=== PATIENT | female | born 1970 | race Caucasian/White ===

== ENCOUNTER → 2018-02-11 | Outpatient (CLI) | payer MEDICARE ==
[~2018-02-11] MED LIST: ARIP10TA33 PO; DULO30CA2 PO; HYDR50CA2 PO; OMEP40CA6 PO
[2018-02-11 15:35] LABS: BASOPHILS # (AUTO) 0.03 x10^3/uL (0-0.1); BASOPHILS % (AUTO) 0 % (0-1); EOSINOPHILS # (AUTO) 0.19 x10^3/uL (0-0.4); EOSINOPHILS % (AUTO) 2 % (1-7); LYMPHOCYTES # (AUTO) 2.46 x10^3/uL (1-3.4); LYMPHOCYTES % (AUTO) 31 % (22-44); MD NO; MEAN CORPUSCULAR HGB CONC 32.1 g/dL (32.4-35.8); MEAN CORPUSCULAR VOLUME 80.9 fL (80-100); MONOCYTES # (AUTO) 0.58 x10^3/uL (0.2-0.8); MONOCYTES % (AUTO) 7 % (2-9); NEUTROPHILS # (AUTO) 4.68 x10^3/uL (1.8-6.8); NEUTROPHILS % (AUTO) 59 % (42-75); PLATELET COUNT 447 x10^3/uL (130-400); RED CELL DISTRIBUTION WIDTH 15.1 % (9.6-15.2)
[2018-02-11 15:47] LABS: INTERNATIONAL NORMALIZED RATIO 0.93 (0.93-1.1); PROTHROMBIN TIME 9.6 Seconds (9.6-11.5)
[2018-02-11 15:49] LABS: ALANINE AMINOTRANSFERASE 38 U/L (12-78); ANION GAP 3 mmol/L (5-15); CALCIUM 9.3 mg/dL (8.5-10.1); CHLORIDE 106 mmol/L (98-107); CREATININE 0.88 mg/dL (0.55-1.02)
[2018-02-11 15:50] LABS: CULTURE INDICATED? NO; MICROSCOPIC NOT IND
[2018-02-11 15:51] LABS: ALKALINE PHOSPHATASE 260 U/L (45-117); BILIRUBIN,TOTAL 0.3 mg/dL (0.2-1.0); TOTAL PROTEIN 8.4 g/dL (6.4-8.2)
== END | disposition home or self-care (01) ==
LOC: STAR 14:39
PROVIDERS: ATTEND Orthopaedic Surgery Orthopaedic Surgery of the Spine
DX: Z01.818 Encounter for other preprocedural examination (principal); K44.9 Diaphragmatic hernia without obstruction or gangrene
CPT/HCPCS: 36415; 71046; 80053; 81003; 85025; 85610; 85730

== ENCOUNTER 2018-02-15 09:02 | Day surgery (SDC) | payer MEDICARE ==
[2018-02-11 15:57] VITALS: BP 156/95
[~2018-02-15] VITALS: Ht 162.6 cm; Wt 87.2 kg
[2018-02-15] MEDS ORDERED: LACTATED RINGERS 1,000 ML IV SCH (09:24)
[2018-02-15] MEDS ORDERED: ONDANSETRON ODT 8 MG PO ONE (09:30)
[2018-02-15] MEDS ORDERED: ACETAMINOPHEN 500 MG TABLET PO ONE (09:30)
[2018-02-15] MEDS ORDERED: GABAPENTIN 300 MG CAPSULE PO ONE (09:30)
[2018-02-15] MEDS ORDERED: SCOPOLAMINE PATCH, 1.5MG PATCH.TD72 TD ONE (09:30)
[2018-02-15 10:00] LABS: AMPHETAMINE SCREEN, URINE Negative (Negative); BARBITURATE SCREEN, URINE Negative (Negative); BENZODIAZEPINE SCREEN, URINE Negative (Negative); CANNABINOID SCREEN, URINE Positive (Negative); COCAINE SCREEN, URINE Negative (Negative); METHADONE SCREEN, URINE Negative (Negative); OPIATE SCREEN, URINE Positive (Negative)
[2018-02-15] MEDS ORDERED: FENTANYL PF 250 MCG/5ML ONE (10:21)
[2018-02-15] MEDS ORDERED: MIDAZOLAM 1 MG/ML, 2ML ONE (10:21)
[2018-02-15] MEDS ORDERED: EPINEPHRINE 1 MG/ML, 1ML ONE (11:02)
[2018-02-15] MEDS ORDERED: THROMBIN 5,000 UNIT VIAL TP ONE (11:02)
[2018-02-15] MEDS ORDERED: VANCOMYCIN 1,000 MG ONE (11:02)
[2018-02-15] MEDS ORDERED: LIDOCAINE/PF 0.5% ,50ML ONE (11:02)
[2018-02-15] MEDS ORDERED: BUPIVACAINE/PF-EPI 0.5% 1:200K ONE (11:06)
[2018-02-15] MEDS ORDERED: OXYcodone 5 MG/5 ML ORAL.SOL UDC PO PRN (12:30)
[2018-02-15] MEDS ORDERED: ALBUTEROL/IPRATROPIUM 2.5MG/0.5MG, 3 ML NPPB PRN (12:30)
[2018-02-15] MEDS ORDERED: PROMETHAZINE 25 MG SUPP PR PRN (12:30)
[2018-02-15] MEDS ORDERED: HYDROmorphone 1 MG/ML, 1ML IV PRN (12:30)
[2018-02-15] MEDS ORDERED: ONDANSETRON 2MG/ML, 2ML IV PRN (12:30)
[2018-02-15] MEDS ORDERED: LABETALOL 5MG/ML, 20ML IV PRN (12:30)
[2018-02-15] MEDS ORDERED: MIDAZOLAM 1 MG/ML, 2ML IV PRN (12:30)
[2018-02-15] MEDS ORDERED: MEPERIDINE/PF 25MG/0.5ML IVPush PRN (12:30)
[2018-02-15] MEDS ORDERED: CEFAZOLIN 1,000 MG ONE (13:05)
[2018-02-15] MEDS ORDERED: DEXAMETHASONE 4 MG/ML, 1ML ONE (13:05)
[2018-02-15] MEDS ORDERED: PROPOFOL 10 MG/ML, 20ML ONE (13:05)
[2018-02-15] MEDS ORDERED: FENTANYL PF 100 MCG/2ML ONE (13:36)
[2018-02-15] MEDS ORDERED: OXYcodone 5 MG/5 ML ORAL.SOL UDC ONE (13:37)
[2018-02-15] MEDS: FENTANYL PF 100 MCG/2ML IV PRN ×2 (13:40→14:08)
[2018-02-15] MEDS ORDERED: SUCCINYLCHOLINE 20 MG/ML, 10ML ONE (15:48)
[2018-02-15] MEDS ORDERED: PHENYLEPHRINE 10 MG/ML ONE (15:48)
[2018-02-15] MEDS ORDERED: ROCURONIUM 10MG/ML,5ML ONE (15:48)
[2018-02-15] MEDS ORDERED: EPHEDRINE 50 MG/ML, 1ML ONE (15:48)
== END 2018-02-15 17:45 | disposition home or self-care (01) ==
LOC: OUT 09:02
PROVIDERS: ATTEND Orthopaedic Surgery Orthopaedic Surgery of the Spine
DX: M51.16 Intervertebral disc disorders with radiculopathy, lumbar region (principal); F32.9 Major depressive disorder, single episode, unspecified; K21.9 Gastro-esophageal reflux disease without esophagitis; G47.33 Obstructive sleep apnea (adult) (pediatric); Z90.710 Acquired absence of both cervix and uterus; Z88.1 Allergy status to other antibiotic agents; Z88.0 Allergy status to penicillin; Z88.8 Allergy status to other drugs, medicaments and biological substances
CPT/HCPCS: 63030; 72100; 80307; J0171; J0330; J0690; J1100; J2001; J2250; J2370; J2704; J3010; J3370; J7120; Q0162